=== PATIENT | female | born 1935 | race Caucasian/White ===

== ENCOUNTER 2017-03-13 06:21 | Day surgery (SDC) | payer MEDICARE ==
[~2017-03-13] VITALS: Ht 160 cm; Wt 59.5 kg
[~2017-03-13 06:21] MED LIST: ASPI81TA82 PO; DILT240C7 PO; FISH100020 PO; LEVO75TA3 PO; MEVA40TA PO; SPIR25TA PO; [UNRECOGNIZED DRUG - CODE] PO
[2017-03-13] MEDS ORDERED: IOHEXOL 350 MG/ML 100 ML BTL (for Cath Lab) OTHER ONE (06:22)
[2017-03-13] MEDS ORDERED: IOHEXOL 350 MG/ML 50 ML BTL (for Cath Lab) OTHER ONE (06:22)
[2017-03-13 07:00] VITALS: BP 113/65; PULSE 60; RESP 16; TEMP 97.4; O2SAT 100
[2017-03-13] MEDS ORDERED: VITA500012 PO (07:16)
[2017-03-13] MEDS ORDERED: SPIR25TA PO (07:16)
[2017-03-13] MEDS ORDERED: OMEGCAP PO (07:16)
[2017-03-13] MEDS ORDERED: LEVO75TA3 PO (07:16)
[2017-03-13] MEDS ORDERED: LOVA20TA PO (07:16)
[2017-03-13] MEDS ORDERED: DILT-48 PO (07:16)
[2017-03-13] MEDS ORDERED: ALPR0.25 PO (07:16)
[2017-03-13] MEDS ORDERED: PLAV75TA29 PO (07:16)
[2017-03-13] MEDS ORDERED: HEPARIN-NS/PF INJ 1,000 ML ONE (08:53)
[2017-03-13] MEDS ORDERED: MIDAZOLAM HCL 2 MG/2 ML VIAL ONE (08:53)
[2017-03-13] MEDS ORDERED: HEPARIN SODIUM - IV 10,000 UNITS/10 ML VIAL ONE (08:54)
[2017-03-13] MEDS ORDERED: NITROGLYCERIN INJ 5 ML ONE (08:54)
[2017-03-13] MEDS ORDERED: ASPIRIN 81 MG CHEW TAB ONE (10:26)
--- NOTE | 2017-03-13 10:31 | CATHPROC ---
[employer] HIS Report Study Information Study Number Admission Scheduled Start Study Start [id number] Mar 13 2017 6:21AM 03/13/2017 Mar 13 2017 8:44AM [place] [facility] Cardiac Catheterization Admit Source Facility Department Other [facility] - Date Night Caregiver Physician and Clinical Staff Initial Caesar Shelley [employer]orer [place] Racheal Templeton,RN Recorder Burton Purdy,RT(R) Scrub Rafat Quinn,RT(R) Procedures Performed Procedure Location (Site) Vessel Name Abdominal Angiogram Abd Aorta (A3) Aorta Angiogram (manual) Iliac R. Com. (R4) Illiac Art. Angiogram (manual) Popliteal R (R10) Popliteal Angiogram (manual) SFA (right) Femoral Art Angiogram (manual) Tib, Ant. (left) Popliteal Angiogram (manual) Tib, Ant. (right) Popliteal Angiogram (manual) Tib, Post (right) Popliteal NARCOTICS AND/OR VICE DETECTIVE Peroneal (right) Popliteal NARCOTICS AND/OR VICE DETECTIVE Tib, Ant. (right) Popliteal Wire insertion Fem Art (left) Femoral Art Equipment Time Handbag Designer Description Size Mfg Part Number Used/Scraped [id number] 10:09 YEN CRITICAL CARE WIRE, ASAHI CONFIANZA 300CM 300CM Used *[id number] BALLOON, LUTONIX 4 X 40 [id number] 09:43 BARD 4 X 40 Used 130CM DCB *[id number] DBP- CARDIOVASCULAR CATHETER, STEALTH SOLID 09:33 [id number] Used SYSTEMS INC. 1.25MM 30 GRIT *[id number] CARDIOVASCULAR LUBRICANT, VIPERSLIDE [id number] 09:33 Used SYSTEMS INC. ATHERCTOMY *[id number] CARDIOVASCULAR [id number] 09:32 WIRE, FIRM (VIPER) 335 Used SYSTEMS INC. *[id number] CATHETER, CXI SUPPORT 10:04 COOK/DOMINGO .014 [id number] Used STRAIGHT .014 150CM WIRE, GUIDE APPROACH HYDRO [id number] 09:29 COOK/DOMINGO 300CM Used ST *[id number] 532-523 08:53 CORDIS/ DOMINGO RIM SUPER TORQUE CATHETER FR 5 Used *[id number] *[id number] ENDOVASCULAR CATHETER, FR4 TRAILBLAZER [id number] 09:31 150CM Used COMPANY .014 *[id number] BALLOON, AMPHIRION DEEP 1.5 X [id number] 10:16 [employer] 150CM Used 20 150CM *[id number] BALLOON, AMPHIRION DEEP 4 X [id number] 09:48 [employer] 150CM Used 40 150CM *[id number] 08:53 MALLINCKRODT SYRINGE, ANGIOMAT 150ML 150ML [id number] Used [id number] 08:53 MEDLINE INDUSTRIES PACK, CCL CUSTOM * Used *[id number] 08:53 MEDLINE PACER PEN, SKIN DUAL W/ RULER * Used *[id number] 10:13 [employer] MEDICAL SHEATH, FR6.5 PRELUDE 11CM FR 6.5 038ACT Used *[id number] 08:53 [employer] MEDICAL WIRE, EXCHANGE 260CM 3MMJ 260CM Used *[id number] 08:53 NAMIC MANIFOLD, 4 PORT * Used *[id number] [id number] 08:53 NAMIC TUBING, HIGH PRESSURE 48" 48" Used *[id number] 08:53 NYCOMED OMNIPAQUE, 300 MG, 150ML 150ML [id number] Used 09:17 NYCOMED OMNIPAQUE, 300 MG, 50ML 50ML [id number] Used [id number] 08:53 FRANKS MEDICAL BLANKET,WARM AIR CCL * Used *[id number] [id number] 08:53 TERUMO MEDICAL SHEATH, FR5 TERUMO (10CM) FR 5 Used *[id number] SHEATH, FR6 PINNACLE 09:27 TERUMO MEDICAL/DOMINGO FR 6 RSC05 *[id number] Used DESTINATION 90CM WIRE, ANGLE GLIDE STIFF .035 [id number] 08:53 TERUMO MEDICAL/DOMINGO 260CM Used 260CM *[id number] Equipment Model, Serial, Lot Number and Expiration Data Description Model Number Serial Number Lot Number Expiration Date CATHETER, CXI SUPPORT [id number] 12-18-2019 STRAIGHT .014 150CM CATHETER, STEALTH SOLID [id number] 03-19-2018 1.25MM 30 GRIT WIRE, FIRM (VIPER) 335 [id number] 11-16-2018 WIRE, GUIDE APPROACH HYDRO [id number] 01-06-2019 ST History: Current Medications Medication Dosage/Unit Route Frequency Last Date/Time Taken PLAVIX Statins (any) History: Allergies Allergy Reaction monosodium glutamate Anaphylaxis raloxifene History: Risk Factors Family History of Hypertension Dyslipidemia Previous SC Previous Heart Failure Premature CAD Yes Yes Yes No No Prior Valve Prior PCI Prior CABG Surgery No No No Cerebrovascular Peripheral Artery Chronic Lung On Dialysis Diabetes Disease Disease Disease No No Yes No No History: Stress Tests Stress or Imaging Studies Performed No History: Arrhythmias Selection Items Atrial fibrillation History: Other Disease Selection Items HTN History: Other Current Smoker No Labs Hgb (g/dl) Hct (%) RBC (MIL/MM3) WBC (l/cumm) Platelets (thousands) 11.60-17.00 35.00-51.00 4.00-5.90 4.00-11.00 150.00-450.00 12.4 37.9 4 5.3 223 Glucose (mg/dl) BUN (mg/dl) Creatinine (mg/dl) BUN:Creatinine (1:x) 74.00-106.00 7.00-18.00 0.50-1.30 10.00-20.00 83 19 0.8 23.8 Na (meq/l) K (meq/l) Cl (meq/l) CO2 (mmol/L) Ca (mg/dl) 136.00-145.00 3.50-5.10 98.00-107.00 21.00-32.00 8.50-10.10 138 5.7 96 25 9.7 PT (sec) INR (PTT:PT) 9.80-11.60 0.90-1.10 10.1 0.9 CPK-MB (ng/ML) 0.50-3.60 Not Drawn Medication Medication Total Dose (Bolus/Oral) Medication Total Dosage/Unit 1% XYLOCAINE 20 mL ASPIRIN 81 mg FENTANYL 100 mcg HEPARIN 5000 units NTG (IC) 100 mcg VERSED 2 mg Medications (Bolus/Oral) Medication Time Given Dosage/Unit Administered By Reason VERSED 03/13/2017 9:10:09 AM 1 mg Racheal Templeton 1 mg VERSED given in lab by Racheal Templeton, RN in Right Antecubital via Peripheral IV. FENTANYL 03/13/2017 9:11:10 AM 50 mcg Racheal Templeton 50 mcg FENTANYL given in lab by Racheal Templeton, RN in Right Antecubital via Peripheral IV. 1% XYLOCAINE 03/13/2017 9:14:15 AM 20 mL Caesar Boyd 20 mL 1% XYLOCAINE given in lab by Caesar Boyd in Left Groin via Subcutaneous. HEPARIN 03/13/2017 9:28:00 AM 5000 units Racheal Templeton 5000 units HEPARIN given in lab by Racheal Templeton RN in Right Antecubital via Peripheral IV. NTG (IC) 03/13/2017 9:39:59 AM 100 mcg Caesar Boyd 100 mcg NTG (IC) given in lab by Caesar Boyd via Intra-coronary. VERSED 03/13/2017 9:53:35 AM 1 mg Racheal Templeton 1 mg VERSED given in lab by Racheal Templeton RN in Right Antecubital via Peripheral IV. FENTANYL 03/13/2017 9:53:46 AM 50 mcg Racheal Templeton 50 mcg FENTANYL given in lab by Racheal Templeton RN in Right Antecubital via Peripheral IV. ASPIRIN 03/13/2017 10:27:47 AM 81 mg Racheal Templeton 81 mg ASPIRIN given in lab by Racheal Templeton RN via Oral. Medication (Drip) Medication Time Given Dosage/Unit Concentration/Unit Diluent (ml) Solution IV Solutions 03/13/2017 8:44:41 AM 0 mL (IV) 500 NaCl .9 IV Solutions given in lab by Racheal Templeton RN in Right Antecubital via Peripheral IV. Pump/Drip Fl ow = 20 ml/hr using NaCl .9. Initial Case Assessment Cardiovascular HR Rhythm NIBP Chest Pain 56 Sinus 148/510 0 Edema Present Skin color Skin None Normal Warm Dry Circulatory - Right Pulses Dorsalis Pedis Posterior Tibial Femoral 0 d 2 Scale (0,1,2,3,4,d) Circulatory - Left Pulses Dorsalis Pedis Posterior Tibial Femoral 2 0 2 Scale (0,1,2,3,4,d) Neurological State Oriented to time-place- Alert Moves all extremities person Respiration - General Respiration Rate SpO2 (%) O2 (lpm) (B/min) 17 97 0 Final Case Assessment Cardiovascular HR Rhythm NIBP Chest Pain 59 Sinus 108/47 0 Edema Present Skin color Skin None Normal Warm Dry Circulatory - Right Pulses Dorsalis Pedis Posterior Tibial Femoral 0 d 2 Scale (0,1,2,3,4,d) Circulatory - Left Pulses Dorsalis Pedis Posterior Tibial Femoral 2 Scale (0,1,2,3,4,d) Neurological State Oriented to time-place- Alert Moves all extremities person Respiration - General Respiration Rate SpO2 (%) O2 (lpm) (B/min) 11 100 2 Chronological Log Time Study Chronological Log 8:40:58 Patient arrived via Bed. 8:44:25 Patient Name, D.O.B, / Armband Verified By R.N. 8:44:26 Consent signed by the physician and the patient and verified by the Date Night Caregiver staff. 8:44:27 Pre-op and post- op instructions given; patient acknowledges understanding of instructions. 8:44:27 Verbal Stimulation=2 Physical Stimulation=2 Airway=2 Respiration=2 TOTAL=8. (0=absent, 1=li mited, 2=present) 8:44:29 Presedation assessment performed by Date Night Caregiver RN. 8:44:33 Patient has been NPO for More than 6Hrs. 8:44:33 Skin Breakdown- right lower leg wound anterior by ankle. 8:44:36 Patient Warmer Placed on the Table. 8:44:37 Kamini Prominences Protected 8:44:39 A # 20 IV was noted in the Antecubital (right). Grade = 0 IV Solutions given in lab by Racheal Templeton, RN in Right Antecubital via Peripheral IV. Pump/D rip Flow = 20 ml/hr 8:44:41 using NaCl .9. 8:44:42 History and physical on the chart or being dictated. Assessment: Initial Case, HR=56 BPM, Rhythm=Sinus, GDBM=775/510 mmhg, Chest Pain=0, Edema=None, Color=Normal, Skin = Warm, Dry Right Pulses: Castro Ped=0, Post Tib=d, Femoral=2 8:44:43 Left Pulses: Castro Ped=2, Post Tib=0, Femoral=2 Neurological: State=Alert, Ox3, TAYLOR Respiration: Resp=17 B/min, SpO2=97 %, O2=0 lpm Vitals capture started with the following parameters, Patient=Adult, Interval=5 min, Initial Pre jatmb=081 mmHg, 8:50:44 Deflation Rate=5 mmHg, Cuff placed on Right Arm 8:52:06 HR=56 bpm, WCOZ=495/51 mmhg, KoN9=868.0 %, Resp=10 B/min, Pain=0, Shelly=10, Weldon=2 8:54:44 Reference ECG taken 8:56:18 Bilateral groins prepped with 2% chlorhexidine, and draped after a 3 minute waiting time. 8:56:20 HR=61 bpm, HHWE=278/73 mmhg, SpO2=98.0 %, Resp=19 B/min, Pain=0, Shelly=10, Weldon=2 9:01:23 HR=62 bpm, TUCQ=946/50 mmhg, GcL5=493.0 %, Resp=16 B/min, Pain=0, Shelly=10, Weldon=2 9:02:06 paged 9:04:04 Pressure channel 1 zeroed. 9:06:59 HR=49 bpm, BGDD=227/52 mmhg, SpO2=98.0 %, Resp=14 B/min, Pain=0, Shelly=10, Weldon=2 9:10:09 1 mg VERSED given in lab by Racheal Templeton RN in Right Antecubital via Peripheral IV. 9:10:55 MD arrived. 9:11:10 50 mcg FENTANYL given in lab by Racheal Templeton RN in Right Antecubital via Peripheral IV. 9:12:00 HR=64 bpm, HQNB=872/53 mmhg, SpO2=97.0 %, Resp=16 B/min Time Out. Correct patient, correct procedure, correct physician, power injector loaded with cont rast with surgical team 9:13:37 present. Time Out Concurred by MD and individual staff in procedure. 9:13:51 Case Start 9:14:15 20 mL 1% XYLOCAINE given in lab by Caesar Boyd in Left Groin via Subcutaneous. 9:16:25 HR=60 bpm, NIBP=95/49 mmhg, SpO2=89.0 %, Resp=14 B/min 9:16:46 Access site was Left Femoral Artery. 9:16:47 A SHEATH, FR5 TERUMO (10CM) FR 5 was advanced into the Fem Art (left) using the Percutaneous technique. A PIGTAIL ANG. INFINITI CATHETER FR 5 was advanced over a wire. OMNIPAQUE, 300 MG, 50ML 50ML was used for 9:16:50 injections. 9:17:20 Through a PIGTAIL ANG. INFINITI CATHETER FR 5, The Abdominal Aorta was injected with 12 cc's of contrast. After removing the current catheter a RIM SUPER TORQUE CATHETER FR 5 was advanced over a WIRE, A NGLE GLIDE 9:18:43 STIFF .035 260CM 260CM. 9:20:00 Iliac R. Com. (R4) angiogram, manually injected. 9:20:17 SFA (right) angiogram, manually injected. 9:20:27 SFA (right) angiogram, manually injected. 9:20:42 Popliteal R (R10) angiogram, manually injected. 9:20:57 Tib, Ant. (right) angiogram, manually injected. 9:21:17 HR=59 bpm, NIBP=99/50 mmhg, SpO2=96.0 %, Resp=15 B/min, Pain=0, Shelly=10, Weldon=2 9:21:39 Tib, Ant. (right) angiogram, manually injected. 9:22:53 Tib, Post (right) angiogram, manually injected. 9:23:30 Tib, Ant. (left) angiogram, manually injected. 9:24:00 Tib, Ant. (right) angiogram, manually injected. 9:25:21 A WIRE, ANGLE GLIDE STIFF .035 260CM 260CM was inserted via Fem Art (left). 9:26:20 HR=55 bpm, HUZJ=425/42 mmhg, SpO2=99.0 %, Resp=19 B/min, Pain=0, Shelly=10, Weldon=2 A SHEATH, FR6 PINNACLE DESTINATION 90CM FR 6 was exchanged in the Fem Art (left). This was erwin jaramillo in order 9:27:04 to accomodate a larger catheter. 9:28:00 5000 units HEPARIN given in lab by Racheal Templeton, INA in Right Antecubital via Peripheral I V. A CATHETER, FR4 TRAILBLAZER .014 150CM was advanced over a wire. OMNIPAQUE, 300 MG, 150ML 150ML was 9:30:04 used for injections. 9:31:20 HR=57 bpm, HEXV=164/45 mmhg, SpO2=99.0 %, Resp=22 B/min, Pain=0, Shelly=10, Weldon=2 9:32:00 A WIRE, GUIDE APPROACH HYDRO ST 300CM was inserted via Fem Art (left). 9:32:58 The previous wire was exchanged for a WIRE, FIRM (VIPER) 335. 9:33:46 Catheter was removed 9:35:24 Activated Clotting Time Drawn 9:36:19 HR=59 bpm, BEVP=634/50 mmhg, SpO2=97.0 %, Resp=29 B/min, Pain=0, Shelly=10, Weldon=2 9:37:21 An CATHETER, STEALTH SOLID 1.25MM 30 GRIT catheter was inserted into the Peroneal (right). 9:37:48 Athrectomy in progress. 9:39:59 100 mcg NTG (IC) given in lab by Caesar Boyd via Intra-coronary. 9:41:20 HR=72 bpm, MMGY=690/56 mmhg, SpO2=96.0 %, Resp=26 B/min, Pain=0, Shelly=10, Weldon=2 9:43:35 Catheter was removed 9:44:29 ACT (Normal Range 90-180) = 262 9:44:47 A BALLOON, LUTONIX 4 X 40 130CM DCB 4 X 40 was inserted over WIRE, FIRM (VIPER) 335 via the Peroneal (right). 9:46:16 Balloon Removed. 9:46:21 HR=60 bpm, YVRU=685/49 mmhg, SpO2=98.0 %, Resp=17 B/min, Pain=0, Shelly=10, Weldon=2 A BALLOON, AMPHIRION DEEP 4 X 40 150CM 150CM was inserted over WIRE, FIRM (VIPER) 335 via the P eroneal 9:47:00 (right). 9:47:37 In the Peroneal (right) a BALLOON, LUTONIX 4 X 40 130CM DCB 4 X 40 was inflated to 8 atms fo r 15 seconds. 9:48:14 Balloon Removed. 9:48:56 Balloon Removed. 9:48:57 A BALLOON, LUTONIX 4 X 40 130CM DCB 4 X 40 was inserted over WIRE, FIRM (VIPER) 335 via the Peroneal (right). 9:49:18 In the Peroneal (right) a BALLOON, LUTONIX 4 X 40 130CM DCB 4 X 40 was inflated to 6 atms fo r 180 seconds. 9:51:26 HR=57 bpm, AEQZ=017/45 mmhg, SpO2=98.0 %, Resp=33 B/min, Pain=0, Shelly=10, Weldon=2 9:52:38 Balloon Removed. 9:53:35 1 mg VERSED given in lab by Racheal Templeton, RN in Right Antecubital via Peripheral IV. 9:53:46 50 mcg FENTANYL given in lab by Racheal Templeton, RN in Right Antecubital via Peripheral IV. A BALLOON, AMPHIRION DEEP 4 X 40 150CM 150CM was inserted over WIRE, FIRM (VIPER) 335 via the P eroneal 9:54:42 (right). 9:55:05 In the Peroneal (right) a BALLOON, AMPHIRION DEEP 4 X 40 150CM 150CM was inflated to 8 atms for 30 seconds. 9:56:14 The previous wire was exchanged for a WIRE, GUIDE APPROACH HYDRO ST 300CM. 9:56:25 HR=57 bpm, NIBP=95/45 mmhg, SpO2=92.0 %, Resp=13 B/min, Pain=0, Shelly=10, Weldon=2 9:57:41 Balloon Removed. A CATHETER, FR4 TRAILBLAZER .014 150CM was advanced over a wire. OMNIPAQUE, 300 MG, 150ML 150ML was 9:58:05 used for injections. 10:01:22 HR=57 bpm, NIBP=99/49 mmhg, SpO2=94.0 %, Resp=14 B/min, Pain=0, Shelly=10, Weldon=2 After removing the current catheter a CATHETER, CXI SUPPORT STRAIGHT .014 150CM .014 was advanc ed over a 10:04:23 WIRE, GUIDE APPROACH HYDRO ST 300CM. 10:06:23 HR=58 bpm, OBIZ=914/44 mmhg, SpO2=98.0 %, Resp=13 B/min, Pain=0, Shelly=10, Weldon=2 10:07:41 Tib, Ant. (right) angiogram, manually injected. 10:08:46 The previous wire was exchanged for a WIRE, ASAHI CONFIANZA 300CM 300CM. 10:11:24 HR=50 bpm, YVUZ=252/49 mmhg, EoJ2=972.0 %, Resp=13 B/min, Pain=0, Shelly=10, Weldon=2 10:13:36 Catheter was removed A BALLOON, AMPHIRION DEEP 1.5 X 20 150CM 150CM was inserted over WIRE, ABENA INGRAMBECK 300CM 30 0CM via 10:14:46 the Tib, Ant. (right). 10:16:25 HR=56 bpm, LUJP=231/52 mmhg, SpO2=98.0 %, Resp=12 B/min, Pain=0, Shelly=10, Weldon=2 10:16:53 In the Tib, Ant. (right) a BALLOON, AMPHIRION DEEP 1.5 X 20 150CM 150CM was inflated to 8 a tms for 10 seconds. 10:17:25 In the Tib, Ant. (right) a BALLOON, AMPHIRION DEEP 1.5 X 20 150CM 150CM was inflated to 8 a tms for 10 seconds. 10:17:46 In the Tib, Ant. (right) a BALLOON, AMPHIRION DEEP 1.5 X 20 150CM 150CM was inflated to 8 a tms for 10 seconds. 10:17:58 In the Tib, Ant. (right) a BALLOON, AMPHIRION DEEP 1.5 X 20 150CM 150CM was inflated to 8 a tms for 10 seconds. 10:18:07 In the Tib, Ant. (right) a BALLOON, AMPHIRION DEEP 1.5 X 20 150CM 150CM was inflated to 8 a tms for 10 seconds. 10:18:19 In the Tib, Ant. (right) a BALLOON, AMPHIRION DEEP 1.5 X 20 150CM 150CM was inflated to 8 a tms for 10 seconds. 10:18:34 In the Tib, Ant. (right) a BALLOON, AMPHIRION DEEP 1.5 X 20 150CM 150CM was inflated to 8 a tms for 10 seconds. 10:19:00 Balloon Removed. 10:19:13 Tib, Ant. (right) angiogram, manually injected. 10:19:45 Tib, Ant. (right) angiogram, manually injected. 10:20:07 Wire removed 10:20:15 A WIRE, EXCHANGE 260CM 3MMJ 260CM was inserted via Fem Art (left). A SHEATH, FR6.5 PRELUDE 11CM FR 6.5 was exchanged in the Fem Art (left). This was necessary in order to minimize 10:20:27 site leakage. 10:21:00 Activated Clotting Time Drawn 10::26 HR=54 bpm, HSJW=966/47 mmhg, IeB2=534.0 %, Resp=13 B/min, Pain=0, Shelly=10, Weldon=2 10:21:34 Case End Assessment: Final Case, HR=59 BPM, Rhythm=Sinus, LDRX=548/47 mmhg, Chest Pain=0, Edema=None, Color=Normal, Skin = Warm, Dry Right Pulses: Castro Ped=0, Post Tib=d, Femoral=2 10:22:30 Left Pulses: Femoral=2 Neurological: State=Alert, Ox3, TAYLOR Respiration: Resp=11 B/min, UmG5=892 %, O2=2 lpm 10:23:52 ACT (Normal Range 90-180) = 302 10:25:03 In the Fem Art (left) the SHEATH, FR6.5 PRELUDE 11CM FR 6.[address] by Rafat Singh RT(R). 10:25:14 Sterile dressing applied to site 10:25:15 No case complications noted. 10:25:16 Cine recording checked. 10:25:51 Bedside Report will be given. 10:26:23 HR=57 bpm, CCSL=463/56 mmhg, WbN7=569.0 %, Resp=12 B/min, Pain=0, Shelly=10, Weldon=2 10:27:47 81 mg ASPIRIN given in lab by Racheal Templeton, RN via Oral. 10:28:29 Patient moved to stretcher 10:31:02 Vitals capture stopped. End Study - Contrast Media Used In Study Contrast Total Opened (mL) Total Used (mL) Total Wasted (mL) Omnipaque 200 125 75 End Study - Maximum Contrast Load Max Contrast Load (mL) 371.9 End Study - Radiation Exposure Fluoro Time (minutes) 23.5 End Study - Patient Disposition Complications Transferred To Interventional Outcome No Outpatient Bed a partial success
[2017-03-13] MEDS ORDERED: BACITRACIN OINT 0.9 GM PKT TOP ONE (10:45)
[2017-03-13] MEDS ORDERED: METOCLOPRAMIDE HCL 10 MG/2 ML VIAL IV PUSH PRN (10:45)
[2017-03-13] MEDS ORDERED: LORazepam 2 MG/ML VIAL IV PUSH PRN (10:45)
[2017-03-13] MEDS ORDERED: oxyCODONE/ACETAMINOPHEN 5 MG/325 MG TAB PO PRN (10:45)
[2017-03-13] MEDS ORDERED: LIDOCAINE HCL 1% 30 ML VIAL INFIL PRN (10:45)
[2017-03-13] MEDS ORDERED: ATROPINE SULFATE 1 MG/ML VIAL IV PUSH PRN (10:45)
[2017-03-13] MEDS ORDERED: MISC INFORMATION XX ONE (10:45)
[2017-03-13] MEDS ORDERED: SODIUM CHLOR 0.9% 250 ML INJ 250 ML IV PRN (10:45)
[2017-03-13] MEDS ORDERED: ONDANSETRON HCL 4 MG/2 ML VIAL IV PUSH PRN (10:45)
[2017-03-13] MEDS ORDERED: oxyCODONE/ACETAMINOPHEN 10 MG/325 MG TAB PO PRN (10:45)
--- NOTE | 2017-03-13 11:01 | MA ---
cc: SAIMA CONN DATE 03/13/2017 Peripheral angiography with intervention. PROCEDURE 1. Fluoroscopy with interpretation 2. Descending aortography 3. Right lower extremity peripheral angiography with first, second, third order visualization interpretation. 4. Orbital rotational atherectomy and balloon angioplasty of the posterior tibial trunk. 5. 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 METHOD The risks, benefits and alternatives discussed with the patient. The patient understood and consented to the procedure. PROCEDURAL STATEMENT The patient brought into the catheterization lab, placed on the catheterization table. The left groin prepped and draped in a sterile fashion. The left groin was anesthetized with 2% lidocaine. The left common femoral was cannulated and a 5-Argentine, 11 cm sheath was placed without difficulty. DESCENDING AORTOGRAPHY Descending aortography was performed anterior-posterior views using a 24 cc contrast injection with good opacification. Descending aortography revealed mild infrarenal descending aortic atherosclerosis, also had moderate infrarenal descending atherosclerosis. RIGHT LOWER EXTREMITY PERIPHERAL ANGIOGRAPHY Right internal and external common iliac arteries are widely patent. Right common femoral and profunda arteries are widely patent. The right superficial femoral has moderate calcium present, but no significant obstructive disease. Right popliteal artery has minor luminal irregularities. Right posterior tibial peroneal trunk has an 80% tubular stenosis. The posterior tibial and peroneal vessels have mild to moderate diffuse disease distally. Anterior tibial is occluded, not well visualized distally. PERCUTANEOUS INTERVENTION A 90 Argentine Terumo sheath was advanced down to the popliteal artery. Heparin was administered throughout the entire procedure to maintain appropriate anticoagulation. Viper wire navigated down the posterior tibial artery. Orbital rotational atherectomy performed on three sequential passes through the posterior tibial trunk. Arteries predilated with a 4.0 x 40 mm Medtronic balloon followed by 4.0 x 40 mm drug coated balloon. Repeat angiography showed no residual stenosis. Several attempts to cross the chronic occlusion using a [place]-ST wire and a Confianza wire were unsuccessful. Hopefully improve collateralization will improve wound healing. CONCLUSIONS 1. Severe right infrapopliteal disease. 2. Successful orbital rotational atherectomy and balloon angioplasty of the posterior tibial peroneal trunk. PLAN Hopefully this translate well with symptomatic improvement. Runoff of the anterior tibial is still poor, but hopefully improved collateralization will improve wound healing. She has good two-vessel runoff now. We will monitor the patient closely and maybe potentially bring her back for angiography of the left lower extremity. MD VIN Jacome /10:35 AM /10:49 AM
[2017-03-13] MEDS ORDERED: ASPI81TA23 PO (11:48)
[2017-03-14] MEDS ORDERED: ASPIRIN 81 MG CHEW TAB PO SCH (09:00)
== END 2017-03-13 19:40 | disposition home or self-care (01) ==
LOC: HDOC 06:21 → HDIC 06:21 → HDOC 19:40
PROVIDERS: ATTEND Internal Medicine
DX: I70.211 Atherosclerosis of native arteries of extremities with intermittent claudication, right leg (principal); I74.5 Embolism and thrombosis of iliac artery; I70.0 Atherosclerosis of aorta; I10 Essential (primary) hypertension; I25.10 Atherosclerotic heart disease of native coronary artery without angina pectoris
CPT/HCPCS: 37229; 75625; 75710; 85002; 85347; 86850; 86900; 86901; 99152; 99153; C1714; C1725; C1751; C1769; C1893; C2623; J1644; J2250; J3010; Q9967